=== PATIENT | female | born 1990 | race Caucasian/White ===

== ENCOUNTER 2019-06-27 16:21 | Observation (INO) | payer OTHER ==
[~2019-06-27] VITALS: Ht 175.3 cm; Wt 122.5 kg
--- NOTE | 2019-06-27 18:30 | NUR ---
29YR OLD WOMAN ADMITTED TO ROOM 124 VIA STRETCHER. PT IS ALERT, ABLE TO STAND AND PIVOT ONTO BED, RATES PAIN 3/10 RIGHT UPPER ABD, DENIES NAUSEA AT THIS TIME, SL IN RFA SECURE, ORIENTED TO ROOM AND CALL LIGHT. IN GOOD SPIRITS. ORDERS NOTED
--- NOTE | 2019-06-27 19:00 | NUR ---
RECEIVED REPORT FROM DEAN NADERSON. pt RESTING WITH EYES CLOSED, RESPIRATIONS REGULAR AND UNLABORED. CALL LIGHT WITHIN REACH. WHITEBOARD UPDATED.
--- NOTE | 2019-06-27 19:48 | NUR ---
DR CHAVEZ IN ROOM EXPLAINING PROCEDURE. CONSENT SIGNED AND WITNESSED. IV ABX HUNG (SEE MAR). pt REQUESTED WHITNEY FIORE RN WILL ADMINISTER. CALL LIGHT WITHIN REACH.
--- NOTE | 2019-06-27 20:06 | NUR ---
PT REPORTS ABD PAIN AT 3-4 OUT OF 10, ADMINISTERED DILAUDID. FRESH ICEWATER AT BEDSIDE AND PT DENIES FURTHER NEEDS.
--- NOTE | 2019-06-27 21:45 | NUR ---
ASSESSMENT DONE. pt RESTING COMFORTABLY. PAIN 01/20. WATER PROVIDED. UPDATED ON PLAN OF CARE. CALL LIGHT WITHIN REACH.
--- NOTE | 2019-06-27 21:47 | NUR ---
VITALS AND I&OS DONE AND CHARTED. BEDSIDE TABLE AND CALL LIGHT IN REACH. PT NEEDS NOTHING MORE AT THIS TIME.
--- NOTE | 2019-06-27 23:03 | NUR ---
HELPED PT TO THE BATHROOM AND BACK TO BED. BEDSIDE TABLE AND CALL LIGHT IN REACH. PT NEEDS NOTHING MORE AT THIS TIME.
--- NOTE | 2019-06-28 01:02 | NUR ---
ROUNDED ON pt. RESTING WITH EYES CLOSED, RESPIRATIONS REGULAR AND UNLABORED. CALL LIGHT WITHIN REACH.
--- NOTE | 2019-06-28 02:15 | NUR ---
ASSESSMENT DONE. DENIES NAUSEA, PAIN 2/10. UP TO VOID AND BACK TO BED. IV ABX INFUSING. VITALS AND I&O RECORDED. CALL LIGHT WITHIN REACH. NPO AT THIS TIME.
--- NOTE | 2019-06-28 05:46 | NUR ---
pt RESTED MOST OF SHIFT. PRN PAIN MEDS X2. NPO AT MIDNIGHT. IVF INFUSING, IV ABX. CURRENTLY ON MENSES. SBA. USES CALL LIGHT APPROPRIATELY.
--- NOTE | 2019-06-28 05:47 | NUR ---
PRN PAIN MED FOR 610 PAIN. VITALS AND I&O RECORDED. NO FURTHER REQUESTS. CALL LIGHT WITHIN REACH.
--- NOTE | 2019-06-28 06:20 | CONS ---
[facility] [address] [place], [place] [address] Signed DATE OF CONSULTATION: 06/27/2019 CHIEF COMPLAINT: Right upper quadrant abdominal pain. HISTORY OF PRESENT ILLNESS: Kamilah is a 29-year-old female, who had her second child, both born vaginally in October. About two weeks afterwards, she started having right upper quadrant abdominal pain associated with nausea and vomiting. It comes and goes, but the last 4 days, she was quite miserable. She is also on her monthly cycle at this time. She and her have moved out from the [place] area to our area recently. Consequently, she has no primary care provider. She went over to the [facility] earlier this morning. Blood work was drawn and her liver function tests were elevated, although the lipase was normal. She was asked to go the emergency room for evaluation. She has not had her beta-hCG done currently. Urine shows some bilirubin as well as some blood, but I think probably from her menses. White count was normal. She had an ultrasound done and she has at least 2 or 3 stones in the gallbladder. However, the gallbladder wall is not thickened. There is no pericholecystic fluid. The common bile duct is unremarkable. She said there was just mild pain with the ultrasound transducer. The ER doctor had called me and we decided to go ahead and admit her and started her on some Levaquin and Flagyl. In the meantime, she says she is doing fine, especially after her morphine. PAST MEDICAL HISTORY: None. PAST SURGICAL HISTORY: Adenoids. SOCIAL HISTORY: She does not smoke or drink, but she does have a little marijuana. She has been to the [facility]. They prefer the [facility]. She does drive. 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 Her works at the [employer] at [place]. Both her children were born vaginally. FAMILY HISTORY: Mom had a heart murmur. Dad had his appendix removed. REVIEW OF SYSTEMS: She had 10 systems reviewed and really nothing new to add, particularly no metal in the body. ALLERGIES: Electronically Signed By: KAYLA CHAVEZ MD 06/28/19 0620 PATIENT NAME: KAMILAH BARILLAS CONSULTATION DATE OF : [birth year] REPORT #: [id number] PHYSICIAN: KAYLA CHAVEZ MD PCP: NO PRIMARY CARE PHYSICIAN REPORT IS CONFIDENTIAL AND NOT TO BE RELEASED WITHOUT AUTHORIZATION [facility] [address] [place], [place] [address] Signed None. MEDICATIONS: None PHYSICAL EXAMINATION: VITAL SIGNS: Blood pressure 129/84, heart rate 80, respiratory rate 16, and temperature 98.6 degrees. She is 100% on room air. She is 5 feet 9 inches and weighs 122 kg. GENERAL: Kamilah is a 29-year-old female, lying supine in her hospital bed. I thought that her skin might be a little jaundiced, but her eyes seem to be fine. LUNGS: Clear to auscultation bilaterally. HEART: Regular rate and rhythm. ABDOMEN: Obese, but soft throughout. She is mildly tender to deep palpation in the right upper quadrant. LABORATORY DATA: Her white blood cell count is 8.9 and neutrophils 65. BUN 9 and creatinine 0.6. Hemoglobin 14. Urine showed some bilirubin and the lipase was 26. AST 348, ALT 494, alkaline phosphatase 149, total bilirubin 4.5, and albumin is 4.2. Beta-hCG is pending, although she is currently on her menses. RADIOGRAPHIC STUDIES: The ultrasound report is reviewed. She has 2 or 3 stones in the gallbladder, but the gallbladder wall is not thickened. There is no pericholecystic fluid. The common bile duct is unremarkable. She was reported to have a negative Barr sign, but she told me she thought there was some mild tenderness. ASSESSMENT AND PLAN: Kamilah is a 29-year-old, obese female, who appears to have some level of [id number] cholelithiasis and cholecystitis. Of course, the last 4 days have been miserable. I reviewed with her the above findings in relationship to the location and function of the gallbladder. We discussed laparoscopic versus open cholecystectomy. We have reviewed the expected intraop and postop course. She understands there is risk of surgery including, but not limited to bleeding, infection, scarring, change in contour of the skin, damage to bowel, damage to main bile duct, and incisional hernias. She has expressed understanding and would like to proceed with surgery tomorrow. We are going to add her on, so it probably will be done sometime after 12 noon. She has expressed understanding and would like to proceed as above. Kayla Chavez MD Electronically Signed By: KAYLA CHAVEZ MD 06/28/19 0620 PATIENT NAME: KAMILAH BARILLAS CONSULTATION DATE OF : [birth year] REPORT #: [id number] PHYSICIAN: KAYLA CHAVEZ MD PCP: NO PRIMARY CARE PHYSICIAN REPORT IS CONFIDENTIAL AND NOT TO BE RELEASED WITHOUT AUTHORIZATION [facility] [address] [place] [address] Signed ALB/MODL /[id number] cc: [facility] Kayla Chavez MD Copies: KAYLA CHAVEZ MD ~ Electronically Signed By: KAYLA CHAVEZ MD 06/28/19 0620 PATIENT NAME: KAMILAH BARILLAS CONSULTATION DATE OF : [birth year] REPORT #: [id number] PHYSICIAN: KAYLA CHAVEZ MD PCP: NO PRIMARY CARE PHYSICIAN REPORT IS CONFIDENTIAL AND NOT TO BE RELEASED WITHOUT AUTHORIZATION
--- NOTE | 2019-06-28 09:30 | NUR ---
SPOKE WITH PATIENT IN ROOM. PATIENT LIVES WITH AND CHILDREN. PLANS TO RETURN HOME. KNOWS OF NO NEEDS TO DO SO SAFELY. 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 DISCUSSED POST OP CARE AND EXPECTATIONS. QUESTIONS ANSWERED. PATIENT HAS ALREADY READ THROUGH EDUCATION MATERIALS IN THE ROOM. WILL FOLLOW NEEDED.
--- NOTE | 2019-06-28 10:25 | NUR ---
PT REPORTED SLIGHT CHEST TIGHTNESS DURING INSPIRATORY BREATHS. 4/10 PAIN DESCBRIBED "MORE ANNYOYING" BEGAN ABOUT 1-2 HOURS AGO. LUNG SOUNDS CLEAR, CHEST AND ABDOMEN NON-TENDER.
--- NOTE | 2019-06-28 10:40 | NUR ---
TALKED WITH PT REGARDING PRE-SURGERY CHECKLIST. SURGERY NURSE NOTED IT WAS OK FOR HER TO LEAVE TAMPON AND PAD IN PLACE DUE TO MENSES.
--- NOTE | 2019-06-28 12:57 | NUR ---
PT TAKEN TO SURGERY. WILL FOLLOW NEEDED
--- NOTE | 2019-06-28 14:40 | NUR ---
06/28/19 1440 Sheets,Porsha 1430 PT ARRIVED TO PACU WITH ORAL AIRWAY IN PLACE AND ON 6L VIA MASK. PT NONAROUSABLE TO PAIFUL STIMULI. JAW THRUST NEEDED TO MAINTAIN AIRWAY. VSS. 1435 PT WOKE AND ORAL AIRWAY REMOVED AND O2 MASK REMOVED. 1439 PT EDUCATION GIVEN ON BRACING ABD AND ENCOURAGED TO COUGH AND DEEP BREATH.
--- NOTE | 2019-06-28 15:25 | NUR ---
PT ON FLOOR 1305. VITALS STABLE. NO C/O PAIN N/V. PT. EATING A SALTINE CRACKER WITH ICE WATER TO START. AT BEDSIDE. CALL LIGHT IN REACH
[2019-06-28] MEDS ORDERED: NORCO 10-325 T1 EACH PO (15:47)
[2019-06-28] MEDS ORDERED: ADVIL200 MG PO (15:49)
--- NOTE | 2019-06-29 08:02 | OR ---
[facility] [address] [place], [place] [address] Signed DATE OF OPERATION: 06/28/2019 SURGEON: Kayla Houston MD PREOPERATIVE DIAGNOSIS: Gallstone pancreatitis. POSTOPERATIVE DIAGNOSIS: Gallstone pancreatitis. PROCEDURE PERFORMED: Laparoscopic cholecystectomy with intraoperative cholangiogram. ESTIMATED BLOOD LOSS: None. FINDINGS: Kamilah had an unremarkable intraoperative cholangiogram. There were no filling defects in the common bile duct and the contrast flowed readily into the duodenum. The gallbladder showed multiple 2-4 mm yellow cholesterol stones. She had several of these small stones in the proximal cystic duct, which we milked out of the duct. She did have owzs-ld-[id number] edema and inflammation of the gallbladder itself. The gallbladder was just starting to become little friable. INDICATIONS: Kamilah is a 29-year-old female, who had her second child born vaginally in October 2018. Two weeks after the delivery, she started to develop intermittent yet significant right upper quadrant abdominal pain radiating through to her back. She said the last four days of it was miserable. She finally came to the emergency room for evaluation. Her vital signs were fine. Exam showed some mild tenderness to deep palpation in the right upper quadrant. White count was normal, but the liver function tests were elevated and the lipase was normal at 26. There was some bilirubin in the urine. Ultrasound of the gallbladder showed several small stones in the gallbladder along with an unremarkable gallbladder wall. There was no pericholecystic fluid and there was no dilation of the common bile duct. Very mild tenderness with her Barr sign. I was asked to admit her as a general surgeon on-call. She was admitted, hydrated, started on her IV antibiotics. We repeated the labs in the morning and her total bilirubin had actually dropped from 4.5 down to 1.3. The lipase actually increased from 26 to 2105 and the AST, ALT, and alkaline phosphatase all decreased. White count also took a bump from 8.9 up to 13.4. However, on clinical exam Kamilah actually stated she was feeling Electronically Signed By: KAYLA HOUSTON MD 06/29/19 0802 PATIENT NAME: KAMILAH BARILLAS OPERATIVE REPORT DATE OF : [birth year] REPORT #: [id number] PHYSICIAN: KAYLA HOUSTON MD PCP: NO PRIMARY CARE PHYSICIAN REPORT IS CONFIDENTIAL AND NOT TO BE RELEASED WITHOUT AUTHORIZATION [facility] [address] [place], [place] [address] Signed much better. Her abdominal exam remained benign. No fullness in the epigastric area. Really only minimal tenderness to very deep palpation in the right upper quadrant. I reviewed with Kamilah and her the location and function of the gallbladder. We discussed laparoscopic versus open cholecystectomy. We reviewed the expected intraop and postop course. We did review the risks including, but not limited to bleeding, infection, scarring, change in contour of the skin, damage to bowel, damage to main bile duct, and incisional hernias. I also explained to Kamilah and her , she had 3% up to 7% chance of having stones in her main bile duct that would require an ERCP, and I reviewed that with him in detail. That is not available in our hospital and she would have to go elsewhere for that. Consequently, we always do an intraoperative cholangiogram. We also reviewed that in detail. They had expressed understanding and wished to proceed. DESCRIPTION OF PROCEDURE: Kamilah was taken into our operating room and placed in the supine position under general endotracheal tube anesthesia. She was on preoperative antibiotics along with subcutaneous heparin. SCDs were utilized. She was then prepped and draped in the usual sterile fashion. After that, all trocars were placed in usual positions under direct visualization of camera without difficulty. We took pictures throughout for photodocumentation. We could see that the gallbladder was dull in color. It was also mildly edematous. It was a bit friable as we elevated the gallbladder and the right upper quadrant. The triangle of Calot was carefully dissected free and a clip was placed across the cystic artery and it was divided. We introduced the intraoperative cholangiogram catheter into the cystic duct, where the gallbladder joins the cystic duct. It had several small stones that we milked out. The intraoperative cholangiogram was completely unremarkable. No filling defects and the contrast flowed readily into the duodenum. The cystic duct was secured with a PDS Endoloop and 3 clips were placed across the cystic duct stump to maycol its location. The gallbladder was then carefully removed from the gallbladder fossa with the help of cautery and placed into an EndoCatch bag. Again, we noted the gallbladder was a little friable and there was some edema in the gallbladder wall as well. The right upper quadrant was then irrigated and suctioned out until clear. We placed the gallbladder into our EndoCatch bag. We used our laparoscopic suturing device to pass 0 Vicryl suture on either side of the fascia at the subxiphoid trocar site. This was tied down to close this fascia primarily. After this, the gas was allowed to escape and all the trocars removed along with the gallbladder. The gallbladder was passed off the table and our circulating nurse opened the gallbladder on the back table for photodocumentation. We closed the fascia of the supraumbilical trocar site with multiple interrupted [id number]-hd-hwubi and simple 0 Vicryl sutures. Local anesthetic was copiously injected into all trocar sites. Each trocar site was irrigated and suctioned out until clear. We closed the skin and dermis of each trocar site with interrupted 3-0 subcuticular Monocryl sutures. Dry gauze and tape were applied on all incisions. Kamilah was awakened from anesthesia, extubated in the OR, Electronically Signed By: KAYLA HOUSTON MD 06/29/19 0802 PATIENT NAME: KAMILAH BARILLAS OPERATIVE REPORT DATE OF : [birth year] REPORT #: [id number] PHYSICIAN: KAYLA HOUSTON MD PCP: NO PRIMARY CARE PHYSICIAN REPORT IS CONFIDENTIAL AND NOT TO BE RELEASED WITHOUT AUTHORIZATION [address] [address] Signed and taken to recovery room in stable condition. Kayla Houston MD ALB/MODL /[id number] cc: Kayla Houston MD [facility] Copies: KAYLA HOUSTON MD ~ Electronically Signed By: KAYLA HOUSTON MD 06/29/19 0802 PATIENT NAME: KAMILAH BARILLAS OPERATIVE REPORT DATE OF : [birth year] REPORT #: [id number] PHYSICIAN: KAYLA HOUSTON MD PCP: NO PRIMARY CARE PHYSICIAN REPORT IS CONFIDENTIAL AND NOT TO BE RELEASED WITHOUT AUTHORIZATION
== END 2019-06-28 16:25 | disposition home or self-care (01) ==
LOC: ED 16:21 → MS 16:23 → ED 18:04 → MS 06-28 16:25
PROVIDERS: ADMIT Colon & Rectal Surgery
PROC: BF101ZZ Fluoroscopy of Bile Ducts using Low Osmolar Contrast (ICD-10-PCS; 2019-06-28)
PROC: 0FT44ZZ Resection of Gallbladder, Percutaneous Endoscopic Approach (ICD-10-PCS; principal; 2019-06-28 12:15)
DX: K80.12 Calculus of gallbladder with acute and chronic cholecystitis without obstruction (principal); K85.10 Biliary acute pancreatitis without necrosis or infection; R11.2 Nausea with vomiting, unspecified
CPT/HCPCS: 00790; 36415; 74300; 76705; 80053; 81001; 83690; 83735; 84100; 84703; 85025; 96372; 96374; 96375; 96376; 99285-25; G0378; J0131; J1100; J1170; J1644; J1885; J1956; J2250; J2270; J2405; J2704; J3010; J7030; J7121; Q9967